=== PATIENT | female | born 1985 | race Asian ===

== ENCOUNTER 2017-12-21 14:35 | Inpatient (IN) | payer OTHER ==
[~2017-12-21] VITALS: Ht 172.7 cm; Wt 72.5 kg
--- NOTE | 2017-12-21 15:37 | History & Physical ---
General Information and HPI MD Statement: I have seen and personally examined TOSHIA GUTHRIE and documented this H&P. Source of Information: patient, old records Exam Limitations: no limitations History of Present Illness: 32YO @ 38+3 by lmp c/w sono c/o painful ctx q 4 min x 3 hrs. No LOF / vb. + FM. AP care c/b GDM - good glycemic control w/ diet. GBS neg. Allergies/Medications Allergies: Coded Allergies: No Known Allergies (12/21/17) Compliance With Home Meds: GOOD Past History hat band attacher History : 1 Para: 0 Last Menstrual Period: 03/12/17 Estimated Delivery Date: 01/01/18 Past hat band attacher History: none Medical History Endocrine: GDM (sees Dr. White, reports PP 100-) Surgical History Pertinent Surgical History: none Past Family/Social History Psychosocial History Smoking Status: Never Smoked Exam & Diagnostic Data Last 24 Hrs of Vital Signs/I&O FS - 84 Intake & Output 12/21 1600 12/21 0800 12/21 0000 Intake Total Output Total Balance Patient 160 lb Weight Obstetric Exam Wgt Gained During : 15 lb Pelvimetry: adequate Dilation (cm): 5 Effacement (%): 100 Station: 0 Membranes: intact Fluid: unknown Fundal Height (cm): 36 Multiple Gestation? No Contractions: q 3-4 #1 - FHR Baseline: 130 Category: 1 Estimated Weight: 3000 Presentation: vtx Patient for Induction? No Physical Exam: nad abd soft nt gravid ext nt no ed Labs Blood Type & Rh: B pos Antibody Screen: neg Hct/Hgb & Platelets #1: 11.2/35.3, 190 Hct/Hgb & Platelets #2: 12.1/ 39.1, 175 Rubella: imm VDRL #1: neg VDRL #2: neg HbsAg: neg HIV #1: neg HIV #2 neg 1 Hr P 3 Hr P/ 187 / 160/ 131 Group B Strep: neg Initial Ultrasound: 05/30/17 siup 9+1 Anatomy Ultrasound: 3/8 nl franchesca Ultrasound for EFW: 12/11 36+3 31% Genetic Testing: hgb aa nl NT cffdna wnl Last 24 Hrs of Labs/Colt: Laboratory Tests 12/21/17 1510: Hemoglobin A1c Pending, CBC w Diff Pending, WBC Pending, RBC Pending, Hgb Pending, Hct Pending, MCV Pending, MCH Pending, MCHC Pending, RDW Pending, Plt Count Pending, MPV Pending Assessment/Plan Assessment/Plan: 32yo 38+3, in active labor, gbs neg, intact, and maternal status reassuring -GDM - good glycemic control w/ diet Admit monitoring expectant mgmt ansvd As Ranked By This Provider Problem List: 1. Core Measures Venous Thromboembolism VTE Risk Factors / No Mechanical VTE Prophylaxis d/t Early Ambulation No VTE Pharm Prophylaxis d/t LowRisk-No Interven Req'd Attending MD Review Statement Attending Statement Attending MD Statement: examined this patient, discussed with family, discussed w/nursing
[2017-12-21] MEDS ORDERED: LEVOXYL25 MCG (16:01)
[2017-12-21 16:02] LABS: ABSOLUTE BASOPHIL COUNT 0 /CUMM (0.0-0.2); ABSOLUTE EOSINOPHIL COUNT 0 /CUMM (0.0-0.7); ABSOLUTE GRANULOCYTE CT 10.3 /CUMM (1.4-6.5); ABSOLUTE LYMPH COUNT 0.8 /CUMM (1.2-3.4); ABSOLUTE MONOCYTE COUNT 0.7 /CUMM (0.10-0.60); BASOPHIL % 0.1 % (0.0-2.0); EOSINOPHIL % 0.1 % (0-5); HEMATOCRIT 37.8 % (37-47); MEAN CORPUSCULAR HGB 32.8 PG (27.0-31.0); MEAN CORPUSCULAR HGB CONC 34.2 G/DL (33.0-37.0); MEAN CORPUSCULAR VOLUME 95.7 FL (81.0-99.0); MEAN PLATELET VOLUME 10.5 FL (7.4-10.4); PLATELET COUNT 179 /CUMM (130-400); RBC DISTRIBUTION WIDTH 14.3 % (11.5-14.5); RED BLOOD CELL CT 3.95 /CUMM (4.20-5.40); WHITE BLOOD CELL COUNT 11.8 /CUMM (4.8-10.8)
--- NOTE | 2017-12-21 18:55 | PN- OBGYN ---
Surgical Brief Attending Note Brief Attending Note: pt comfortable w/ epidural afeb, v/ss fht cat 1 toco q 3 sve 7-8 / 100 / -1, arom, bld tinge -cont expectant mgmt -ansvd
--- NOTE | 2017-12-21 20:56 | PN- OBGYN ---
Surgical Brief Attending Note Brief Attending Note: pt comfortable afeb, v/ss fht 130s mod variability +acc no dec toco q 2-3 sve fd/+2 -begin pushing -ansvd
--- NOTE | 2017-12-22 00:40 | Labor & Delivery Summary ---
See Addendum Delivery Summary Vaginal Delivery: Vaginal: VAVD Episiotomy/Lacerations: Type: vaginal Repair: 2-0 vicryl Anesthesia: nesicaine, epidural Placenta: Placenta: spontanteous, normal, 3 vessel Anesthesia: block Baby's Weight: 3380gr Apgars - 1 Min: 8 Apgars - 5 Min: 9 Additional Comments: Pt FD / +2 and pushing w/ epidural. Recurrent variable decels noted and becoming more prolonged w/ late component. Verbal informed consent obtained for vaccuum application. Straight catheterization performed. Vaccuum applied. With 2 pulls and no pop-offs, controlled vavd of live male, apg 8/9, wt 3380gr. Head delivered from CHERRIE. Mouth and nose bulb suctioned. Body delivered w/o difficulty. Baby to mom's chest. Cord clamped and cut. Baby then given to peds for evaluation. 3vc placenta del spont intact. Uterus remained boggy w/ fundal massage and pit. Methergin 0.2mg IM given. Vaginal lacerations repaired usual fashion 2-0 rocky. Good hemostasis. Fundus contracted. Pt tolerated well. EBL 400cc.
[2017-12-22 09:59] LABS: ABSOLUTE BASOPHIL COUNT 0 /CUMM (0.0-0.2); ABSOLUTE EOSINOPHIL COUNT 0 /CUMM (0.0-0.7); ABSOLUTE GRANULOCYTE CT 15.4 /CUMM (1.4-6.5); BASOPHIL % 0 % (0.0-2.0); EOSINOPHIL % 0 % (0-5); HEMATOCRIT 37.7 % (37-47); MEAN CORPUSCULAR HGB 33.2 PG (27.0-31.0); MEAN CORPUSCULAR VOLUME 97.6 FL (81.0-99.0); MEAN PLATELET VOLUME 10.4 FL (7.4-10.4); PLATELET COUNT 146 /CUMM (130-400); RBC DISTRIBUTION WIDTH 14.4 % (11.5-14.5); RED BLOOD CELL CT 3.87 /CUMM (4.20-5.40); WHITE BLOOD CELL COUNT 17.4 /CUMM (4.8-10.8)
[2017-12-22 11:26] LABS: GRANULOCYTE % 88.6 % (42.2-75.2)
--- NOTE | 2017-12-22 13:31 | PN- OBGYN ---
Surgical Brief Attending Note Brief Attending Note: PPD 1 Comfortable. Denies pain. her baby. Lochia is mild rubra. Tolerating all PO. Voiding and ambulating without difficulty. afebrile, VS normal mouth/lips - pink, moist neck - supple breasts - no mass or tenderness, mildly engorged abd - soft, NT, no mass, no CVAT fundus - firm, NT extr - benign neuro - intact grossly A: doing well her baby P: routine care encouraged extra PO water intake regrding circumcision, patient unsure if she wants this, will speak with her and let me know. discharge planned for tomorrowl
[2017-12-23 02:48] VITALS: BP 112/59
--- NOTE | 2017-12-23 10:37 | PN- OBGYN ---
Surgical Brief Attending Note Brief Attending Note: PPD 2 Feeling well. Denies pain. working well. Lochia scant rubra. +void. Anbulating. Tolerating all POs. afebrile, VS normal. Abd - soft, NT Fundus - firm, NT Perineum - intact, dry Extr - benign, minimal edema bilat. Labs, vitals, I&Os reviewed A: normal recovery s/p VAVD H/H stable despite above average EBL initial intrapartum fever did not recur P: discharge home today pt and have decided not to request circumcision instructions reviewed to CBC in a few days for F?U, to [facility] in 6w for exam patient's questions answered.
[2017-12-23] MEDS ORDERED: IBUPROFEN800 M1 PO (10:54)
[2017-12-23] MEDS ORDERED: HPA LANOLIN40 GM TOP (10:54)
== END 2017-12-23 12:15 | DRG 774 ==
LOC: CBCO 14:35 → GNO 15:02 → CBCO 01-01 08:00
PROVIDERS: Obstetrics & Gynecology
PROC: 0HQ9XZZ Repair Perineum Skin, External Approach (ICD-10-PCS; principal; 2017-12-21)
PROC: 10D07Z6 Extraction of Products of Conception, Vacuum, Via Natural or Artificial Opening (ICD-10-PCS; principal; 2017-12-21)
DX: O76 Abnormality in fetal heart rate and rhythm complicating labor and delivery (principal); O75.2 Pyrexia during labor, not elsewhere classified; O70.0 First degree perineal laceration during delivery; O24.420 Gestational diabetes mellitus in childbirth, diet controlled; Z3A.38 38 weeks gestation of pregnancy; Z37.0 Single live birth
CPT/HCPCS: GNOP; GNOS; 36415; 81001; 87086; J2210; J7120